=== PATIENT | male | born 1995 | race Two or more races ===

== ENCOUNTER 2024-05-07 21:42 | Emergency (ER) | payer MEDICAID, SELFPAY ==
[2024-05-07 21:43] VITALS: BMI 31.1
--- NOTE | 2024-05-07 22:28 | PC.NURSE ---
CALLED PT FOR VITALS AND NO ANSWER
== END 2024-05-07 23:23 | disposition left against medical advice (07) ==
LOC: SERX 23:41
PROVIDERS: Emergency Provider Emergency Medicine
DX: Z53.21 Procedure and treatment not carried out due to patient leaving prior to being seen by health care provider (principal)

== ENCOUNTER 2024-10-24 10:30 | Emergency (ER) | payer MEDICAID, SELFPAY ==
--- NOTE | 2024-10-24 10:55 | XR_ITS ---
Examination: Abdomen sonogram, Limited Date and time of exam: October 24, 2024 11:30 AM INDICATIONS: Right upper abdominal pain beginning 5 months ago Technique: Real-time mcdaniel scale transabdominal sonographic images of the upper abdomen obtained. Findings: Normal gallbladder. Normal common bile duct 0.3 cm Pancreatic head 3.0 cm Mild hepatomegaly 16.9 cm fatty infiltration Normal hepatopedal portal venous flow Patent IVC IMPRESSION: Fatty liver, mild hepatomegaly
[2024-10-24 11:02] VITALS: BP 132/78; PULSE 83; RESP 16; TEMP 37; O2SAT 98; BMI 33.7
--- NOTE | 2024-10-24 11:09 | EDNOTE_ITS ---
ED Abdominal Pain RME/HPI General Chief Complaint: Abdominal Pain Stated complaint: RUQ ABD PAIN Time seen by provider: 10/24/24 11:09 Arrival date/time: 10/24/24 10:30 29-year-old male with no known medical history presents to the emergency room with a chief complaint of right upper quadrant abdominal pain and tenderness x 2 days Source: patient Mode of arrival: ambulatory Limitations: no limitations Related Data Previous Rx's ?Medication ?Instructions ?Recorded albuterol sulfate 90 mcg/actuation 2 inh inhalation Q4 H PRN shortness 05/08/24 aerosol inhaler of breath or wheezing #8.5 g ronaldo famotidine 20 mg tablet 20 mg PO QDAY #30 tabs 05/12 polyethylene glycol 3350 17 17 g PO BID 3 weeks #119 g ronaldo 05/16/24 gram/dose oral powder (Miralax) Allergies Allergy/AdvReac Type Severity Reaction Status Date / Time loracarbef (From Lorabid) Allergy Severe Hives Verified 05/15/24 23:12 Review of Systems Review of Systems Systems Reviewed: All systems reviewed, normal except as documented Constitutional Constitutional: Reports system reviewed and no additional complaints, except as documented, Denies fatigue, Denies fever(s), Denies headache(s) and Denies weakness Eyes Eyes: Reports system reviewed and no additional complaints, except as documented, Denies blurry vision and Denies change in vision ENT Ears, Nose, Mouth, and Throat: Reports system reviewed and no additional complaints, except as documented, Denies otalgia, Denies headache(s), Denies nasal congestion, Denies throat swelling and Denies vertigo Cardiovascular Cardiovascular: Reports system reviewed and no additional complaints, except as documented, Denies chest pain, Denies dyspnea and Denies dyspnea on exertion Respiratory Respiratory: Reports system reviewed and no additional complaints, except as documented, Denies chest congestion, Denies cough, Denies dyspnea, Denies dyspnea on exertion and Denies wheezing Gastrointestinal Gastrointestinal: Reports system reviewed and no additional complaints, except as documented, Reports abdominal pain, Reports cramping, Reports dyspepsia, Reports nausea and Denies vomiting Genitourinary Genitourinary: Reports system reviewed and no additional complaints, except as documented, Denies dysuria and Denies hematuria Musculoskeletal Musculoskeletal: Reports system reviewed and no additional complaints, except as documented and Denies back pain Integumentary/Breasts Skin/Breast: Reports system reviewed and no additional complaints, except as documented and Denies wounds Neurologic Neurologic: Reports system reviewed and no additional complaints, except as documented, Denies confusion, Denies headache(s), Denies lack of coordination, Denies vertigo and Denies weakness Psychiatric Psychiatric: Reports system reviewed and no additional complaints, except as documented, Denies anxiety, Denies confusion, Denies depression, Denies paranoia, Denies suicidal ideation and Denies tactile hallucinations Endocrine Endocrine: Reports system reviewed and no additional complaints, except as documented and Denies fatigue Hematologic/Lymphatic Hematologic/Lymphatic: Reports system reviewed and no additional complaints, except as documented and Denies lymphadenopathy Allergic/Immunologic Allergic/Immunologic: Reports system reviewed and no additional complaints, except as documented, Denies throat swelling, Denies urticaria and Denies wheezing Past Medical History Past Medical History CARDIAC: Negative Cardiac Disorders or Congestive Heart Failure RESPIRATORY: Positive Asthma; Negative Chronic Obstructive Pulmonary Disease (COPD) GENITOURINARY: Negative Renal Disease ENDOCRINE: Negative Diabetes Mellitus Type 1 or Diabetes Mellitus Type 2 HEMATOLOGIC: Negative Sickle Cell Disease Social History SMOKING STATUS: Never smoker ED Exam General Limitations: Present no limitations General appearance: Present alert and in no apparent distress Head Head exam: Present atraumatic Eye Eye exam: Present normal appearance, PERRL and EOMI ENT ENT exam: Present normal exam, normal oropharynx and mucous membranes moist Neck Neck exam: Present normal inspection, full ROM and trachea midline Chest Chest inspection: Present normal inspection and symmetric chest wall rise Respiratory Respiratory exam: Present normal lung sounds bilaterally Cardiovascular Cardiovascular exam: Present regular rate, normal rhythm and normal heart sounds Abdominal Exam Abdominal exam: Present soft, tenderness and normal bowel sounds; Absent distention, guarding, rebound, rigidity, trauma, Sánchez's sign or tenderness at McBurney's Point Abdominal tenderness: Present RUQ and moderate Extremities Exam Extremities exam: Present normal inspection and full ROM Back Exam Back exam: Present normal inspection and full ROM Neurological Exam Neurological exam: Present alert, oriented X3 and CN II-XII intact Psychiatric Psychiatric exam: Present normal affect and normal mood Skin Skin exam: Present warm, dry, intact and normal color Course Quality Measures none Orders Category Date Time Status US gall bladder Stat Exams 10/24/24 10:55 Completed CBC Stat Lab 10/24/24 11:07 Completed CMP [Comprehensive Metabolic Panel] Stat Lab 10/24/24 11:07 Completed Lipase Stat Lab 10/24/24 11:07 Completed UA [Urinalysis] Stat Lab 10/24/24 12:05 Completed Urine Culture Stat Lab 10/24/24 12:05 Completed mg Hyd/Al Hyd/Jose Susp [Maalox Susp] Med 10/24/24 11:09 Discontinued 30 ml PO X1 ONE Vital Signs Vital signs: Vital Signs Temperature 98.6 F 10/24/24 11:02 Pulse Rate 83 10/24/24 11:02 Respiratory Rate 16 10/24/24 11:02 Blood Pressure 132/78 H 10/24/24 11:02 Pulse Oximetry (%) 98 10/24/24 11:02 Oxygen Delivery Method Room Air 10/24/24 11:02 O2 saturation 98% within normal limits Abdominal Pain MDM MDM Narrative MDM Narrative:: 29-year-old male with no known medical history presents to the emergency room with a chief complaint of right upper quadrant abdominal pain and tenderness x 2 days Patient is hemodynamically stable and in no apparent distress Physical examination shows 8 out of 10 right upper quadrant abdominal pain and tenderness as well as epigastric pain. Patient has active bowel sounds to all 4 quadrants. Patient denies any vomiting or diarrhea. Ultrasound of the gallbladder was completed and shows a fatty liver and mild hepatomegaly. There are no gallstones and there is a normal gallbladder. CBC CMP were negative for any leukocytosis urinalysis was negative. Patient was educated to follow-up with primary care provider and return to the emergency room for any evidence of worsening signs or symptoms Patient data External records reviewed:: [facility] previous records Clinical information provided by:: patient Social determinants that could affect healthcare access:: none Patient has the following chronic illnesses:: No chronic illness How is presenting disease/condition affected by chronic disease/condition?: no chronic disease Evaluation data The following diagnostics were reviewed and interpreted by me:: lab results and radiology exam(s) Lab and/or radiology exams considered but not ordered:: Labs and radiology exams considered and ordered Interpretation Summary: Gallbladder ultrasound-Findings: Normal gallbladder. Normal common bile duct 0.3 cm Pancreatic head 3.0 cm Mild hepatomegaly 16.9 cm fatty infiltration Normal hepatopedal portal venous flow Patent IVC IMPRESSION: Fatty liver, mild hepatomegaly Medications / Prescriptions Medications or Prescriptions considered but not ordered:: Medication given Medication administrations:: Medication Administration History Discontinued Medications Al Hydrox/Mg Hydrox/Simethicone (Mg Hyd/Al Hyd/Jose (Maalox Reg) Susp 30 Ml Udc) 30 ml PO X1 ONE Stop: 10/24/24 11:10 Last Admin: 10/24/24 11:16 Dose: 30 ml Documented By: ED Medication given Consultations Consultation(s) initiated? (list below): No Diagnosis Differential diagnosis abdominal pain: abdominal pain, acute appendicitis, constipation, gastroenteritis, pancreatitis and small bowel obstruction Most likely diagnosis given after review of the tests above:: Gastroenteritis Admission Indicated Admission indicated?: not indicated Admission Request Was there a request for admission?: No Disposition Plan Disposition Plan: Discharge Discharge Attestation Discharge Attestation: The patient and all family members were given an opportunity to ask questions and understood the discharge instructions. Discharge instructions specifically effects, indications for sooner follow up or return to the emergency department, and the expected course of current diagnosis. Patient condition: Stable Discharge Plan Plan Patient Disposition: HOME (Self Care) Disposition Comment: Stable Prescriptions/Referrals Prescriptions/Med Rec: No Action famotidine 20 mg tablet 20 mg PO QDAY Qty: 30 0RF albuterol sulfate 90 mcg/actuation HFA aerosol inhaler 2 inh inhalation Q4H PRN (Reason: shortness of breath or wheezing) Qty: 8.5 0RF polyethylene glycol 3350 [Miralax] 17 gram/dose powder 17 g PO BID 21 Days Qty: 119 2RF Rx Instructions: X 2 weeks and then once a day for 1 week Referrals: William Soliz MD [Primary Care Provider] - In 1 week Problem List Clinical Impression: Gastroenteritis Patient/Caregiver Discharge Instructions Education Materials: ED Gastroenteritis, Noninfectious Additional Instructions: Please follow-up with your primary care provider in the next 24 to 48 hours The ultrasound of your gallbladder was completed and was negative for any acute findings. There is no gallstones. For any evidence of worsening signs or symptoms please return to the emergency room immediately Please keep your appointment with your international nurse. Print Language: [place] Stand Alone Forms: Kortney Award Info., Patient Portal Info Letter PA/COATER HELPER Supervising Physician PA/COATER HELPER Supervising Physician: Dr. ROMO
[2024-10-24] MEDS: MG HYD/AL HYD/SIME (Maalox Reg) SUSP 30 ML UDC PO (11:16)
[2024-10-24 11:20] LABS: Basophils % (Auto) 1 % (0-2.5); Eosinophils # (Auto) 0.6 Thou/mm3 (0.0-0.5); Eosinophils % (Auto) 9 % (0-10); Hematocrit 43.3 % (41.0-53.0); Hemoglobin 15.3 g/dL (13.5-16.0); Immature Granulocytes % (Auto) 0 % (0-0); Immature Granulocytes Auto 0.02 Thou/mm3 (0.00-0.00); Lymphocytes # (Auto) 1.9 Thou/mm3 (1.0-4.8); Lymphocytes % (Auto) 28 % (10-50); Mean Corpuscular HGB Conc 35.3 g/dl (31.0-37.0); Mean Corpuscular Hemoglobin 29.8 pg (25.0-35.0); Mean Corpuscular Volume 84 fL (80-100); Monocytes # (Auto) 0.5 Thou/mm3 (0.0-0.8); Monocytes % (Auto) 8 % (0-12); Neutrophils # (Auto) 3.6 Thou/mm3 (1.8-7.7); Neutrophils % (Auto) 54 % (37-80); Nucleated Red Blood Cell % 0 /100 WBC (0); Platelet Count 215 Thou/mm3 (140-440); RDW Standard Deviation 36.7 fL (35.1-43.9); Red Blood Count 5.13 Miln/mm3 (4.50-5.90); White Blood Count 6.6 Thou/mm3 (3.8-10.6)
[2024-10-24 12:12] LABS: Alanine Aminotransferase 36 U/L (10-49); Albumin, Serum 4.8 gm/dL (3.5-5.0); Albumin/Globulin Ratio 1.8 (1.2-2.2); Alkaline Phosphatase 80 U/L (46-116); Anion Gap 9 (7-16); Aspartate Amino Transferase 18 U/L (0-34); BUN/Creatinine Ratio 15 Ratio (12-20); Bilirubin,Total 1.1 mg/dL (0.3-1.2); Blood Urea Nitrogen 20 mg/dL (9-23); Calcium 9.2 mg/dL (8.3-10.6); Calcium (Corrected) 9.2 mg/dL (8.5-10.1); Carbon Dioxide 25.9 mMol/L (20.0-31.0); Chloride 105 mMol/L (98-107); Creatinine (Component) 1.3 mg/dL (0.6-1.3); Estimated Creatinine Clearance 113.9 mL/min (>60); Globulin 2.7 gm/dL (2.3-3.5); Glucose 92 mg/dL (74-106); Lipase 38 U/L (12-53); Osmolality,Calculated 282 (275-295); Potassium 4.2 mMol/L (3.4-5.1); Sodium 140 mMol/L (136-145); Total Protein 7.5 gm/dL (5.7-8.2); eGFR > 60 See Note
[2024-10-24 12:15] LABS: Collection Type, Urine Clean Catch; Squamous Epithelial Cell,Urine 0 /hpf (0-5)
[2024-10-24 12:19] LABS: Bilirubin,Urine Negative (Negative); Blood,Urine Negative (Negative); Clarity,Urine Clear (Clear/Hazy); Color,Urine Lt-Yellow (Lt Yel-Yel); Glucose, Urine Negative (Negative); Ketones,Urine Negative (Negative); Leukocyte Esterase,Urine Negative (Negative); Nitrite,Urine Negative (Negative); Protein,Urine Negative (Neg - Trace); RBC,Urine 2 /hpf (0-3); Specific Gravity,Urine 1.028 (1.001-1.035); Urobilinogen,Urine Negative mg/dL (0.0-1.0); WBC,Urine < 1 /hpf (0-5)
== END 2024-10-24 13:26 | disposition home or self-care (01) ==
PROVIDERS: Nurse Practitioner Family; Emergency Provider Emergency Medicine; PCP Neurological Surgery
DX: K52.9 Noninfective gastroenteritis and colitis, unspecified (principal); K76.0 Fatty (change of) liver, not elsewhere classified
CPT/HCPCS: 36415; 76705; 80053; 81001; 83690; 85025; 87086; 99284; A9270

== ENCOUNTER 2025-07-19 11:37 | Emergency (ER) | payer MEDICAID, SELFPAY ==
[2025-07-19 11:38] VITALS: BMI 33.2
[2025-07-19 11:44] VITALS: BP 137/79; PULSE 60; RESP 18; TEMP 36.7; O2SAT 100
--- NOTE | 2025-07-19 12:34 | PD.EDRME ---
Rapid Medical Screening Exam RME Arrival date/time: 07/19/25 11:37 This is a 30 year old male with complaints of diarrhea for almost 2 weeks now. Pt c/o of right sided abdominal pain.Pt states he feels fatigue and weak. I have greeted and performed a focused initial assessment of this patient. Initial appropriate labs ordered at this time. A comprehensive ED assessment and evaluation of the patient and analysis of all test and completion of medical decision making process will be conducted by additional ED provider. Chief Complaint: Abdominal Pain Time Seen by Provider: 07/19/25 12:05 Vital signs: Vital Signs Temperature 98.1 F 07/19/25 11:44 Pulse Rate 60 07/19/25 11:44 Respiratory Rate 18 07/19/25 11:44 Blood Pressure 137/79 H 07/19/25 11:44 Pulse Oximetry (%) 100 07/19/25 11:44 Oxygen Delivery Method Room Air 07/19/25 11:44 Exam: Alert and oriented, breathing even unlabored. Right sided abdominal pain Clinical Impression: Abdominal pain
[2025-07-19 12:58] LABS: Basophils # (Auto) 0.0 Thou/mm3 (0.0-0.2); Basophils % (Auto) 0 % (0-2.5); Eosinophils # (Auto) 0.1 Thou/mm3 (0.0-0.5); Eosinophils % (Auto) 3 % (0-10); Hematocrit 41.7 % (41.0-53.0); Hemoglobin 14.3 g/dL (13.5-16.0); Immature Granulocytes Auto 0.00 Thou/mm3 (0.00-0.00); Lymphocytes # (Auto) 2.5 Thou/mm3 (1.0-4.8); Lymphocytes % (Auto) 50 % (10-50); Mean Corpuscular HGB Conc 34.3 g/dl (31.0-37.0); Mean Corpuscular Hemoglobin 29.7 pg (25.0-35.0); Mean Corpuscular Volume 87 fL (80-100); Monocytes # (Auto) 0.3 Thou/mm3 (0.0-0.8); Monocytes % (Auto) 7 % (0-12); Neutrophils # (Auto) 2.0 Thou/mm3 (1.8-7.7); Neutrophils % (Auto) 40 % (37-80); Nucleated Red Blood Cell # 0.00 Thou/mm3 (0.00-0.00); Nucleated Red Blood Cell % 0 /100 WBC (0); Platelet Count 167 Thou/mm3 (140-440); RDW Standard Deviation 42.7 fL (35.1-43.9); Red Blood Count 4.81 Miln/mm3 (4.50-5.90); White Blood Count 5.1 Thou/mm3 (3.8-10.6)
[2025-07-19 13:05] LABS: Collection Type, Urine Voided; Squamous Epithelial Cell,Urine 0 /hpf (0-5)
[2025-07-19 13:09] LABS: Bilirubin,Urine Negative (Negative); Blood,Urine Negative (Negative); Clarity,Urine Clear (Clear/Hazy); Color,Urine Lt-Yellow (Lt Yel-Yel); Culture Indicated,Urine Not Indicated; Glucose, Urine Negative (Negative); Ketones,Urine Negative (Negative); Leukocyte Esterase,Urine Negative (Negative); Nitrite,Urine Negative (Negative); PH,Urine 7.5 (5.0-7.0); Protein,Urine Negative (Neg - Trace); RBC,Urine 2 /hpf (0-3); Specific Gravity,Urine 1.024 (1.001-1.035); Urobilinogen,Urine Negative mg/dL (0.0-1.0); WBC,Urine < 1 /hpf (0-5)
[2025-07-19 13:18] LABS: Alanine Aminotransferase 45 U/L (10-49); Albumin, Serum 4.9 gm/dL (3.5-5.0); Albumin/Globulin Ratio 2.3 (1.2-2.2); Alkaline Phosphatase 74 U/L (46-116); Anion Gap 8 (7-16); Aspartate Amino Transferase 25 U/L (0-34); BUN/Creatinine Ratio 14 Ratio (12-20); Bilirubin,Total 1.6 mg/dL (0.3-1.2); Blood Urea Nitrogen 14 mg/dL (9-23); Calcium 9.5 mg/dL (8.3-10.6); Calcium (Corrected) 9.5 mg/dL (8.5-10.1); Carbon Dioxide 28.6 mMol/L (20.0-31.0); Chloride 107 mMol/L (98-107); Creatinine (Component) 1.0 mg/dL (0.6-1.3); Estimated Creatinine Clearance 141.6 mL/min (>60); Globulin 2.1 gm/dL (2.3-3.5); Glucose 101 mg/dL (74-106); Lipase 35 U/L (12-53); Osmolality,Calculated 287 (275-295); Potassium 4.3 mMol/L (3.4-5.1); Sodium 144 mMol/L (136-145); Total Protein 7.0 gm/dL (5.7-8.2); eGFR > 60 See Note
[2025-07-19 14:21] LABS: Amphetamine/Methamp Scrn,U Negative (Negative); Barbiturate Screen,Urine Negative (Negative); Benzodiazepines Screen,Urine Negative (Negative); Benzoylecgonine Screen, Ur Negative (Negative); Fentanyl Screen,Urine Negative (Negative); Opiate Screen,Urine Negative (Negative); THC Screen,Urine Negative (Negative)
[2025-07-19 15:13] VITALS: BP 134/80; PULSE 56; RESP 16; TEMP 36.9; O2SAT 100
--- NOTE | 2025-07-19 15:22 | EDNOTE_ITS ---
<Statement entered by Magali Schultz MD - 07/20/25 14:20> As co-signing physician, I was present and available for consult prn. I concur with the plan and care as documented by the midlevel provider. ED General RME/HPI General Chief complaint: Abdominal Pain Stated complaint: I FEEL LIKE MY BP IS LOW ; RUQ ABD PAINX2 WEEKS Time Seen by Provider: 07/19/25 12:05 Arrival date/time: 07/19/25 11:37 30-year-old male patient was brought in for evaluation regarding multiple complaints. Patient has been having generalized body weakness, worried that his blood pressure is low. Has been ongoing for the last few days. Also complaining of abdominal discomfort and bloatedness. Patient told me that this could be secondary to using CPAP machine during the night. Denies any vomiting fever chest pain or other complaints. RME / HPI RME / HPI narrative: 07/19/25 11:37 This is a 30 year old male with complaints of diarrhea for almost 2 weeks now. Pt c/o of right sided abdominal pain.Pt states he feels fatigue and weak. I have greeted and performed a focused initial assessment of this patient. Initial appropriate labs ordered at this time. A comprehensive ED assessment and evaluation of the patient and analysis of all test and completion of medical decision making process will be conducted by additional ED provider. Exam: Alert and oriented, breathing even unlabored. Right sided abdominal pain Impression: Abdominal pain Related Data Previous Rx's ?Medication ?Instructions ?Recorded albuterol sulfate 90 mcg/actuation 2 inh inhalation Q4 H PRN shortness 05/08/24 aerosol inhaler of breath or wheezing #8.5 g ronaldo famotidine 20 mg tablet 20 mg PO QDAY #30 tabs 05/12 polyethylene glycol 3350 17 17 g PO BID 3 weeks #119 g ronaldo 05/16/24 gram/dose oral powder (Miralax) Allergies Allergy/AdvReac Type Severity Reaction Status Date / Time loracarbef (From Lorabid) Allergy Severe Hives Verified 07/19/25 11:40 Review of Systems Review of Systems Narrative Review of Systems: Review of system reviewed and within normal limits except mentioned in HPI ED Exam Narrative Physical exam: VITAL SIGNS: Reviewed. GENERAL APPEARANCE: Alert and interactive, follows commands, no acute distress, HEAD AND FACE: Non-traumatic. ENT: PERRL, pink conjunctivitis, eyelid no trauma, Mucous membrane moist. NECK: Supple, nontender, no nuchal rigidity. CHEST: No tenderness, no crepitus, no paradoxical movement, no retractions. LUNGS: Clear, well ventilated, symmetric, no rales, no wheezing, no ronchi, no stridor, good breath sounds bilaterally. HEART: Regular rate, regular rhythm, no murmur, no gallops. ABDOMEN: Soft, positive bowel sounds, nondistended, no guarding, nontender, no rebound, no masses, RECTAL: Deferred. GENITAL: Deferred. NEUROLOGICAL: Gross motor function intact sensory function intact, Appropriate for age. MUSCULOSKELETAL: low back nontender, full range of motion. EXTREMITIES: Nontender, full range of motion. SKIN: Color pink, dry, no rash, no lacerations, no abrasions, no contusions. LYMPHATICS: Deferred. Course Quality Measures none Orders Category Date Time Status CBC Stat Lab 07/19/25 12:46 Completed Comprehensive Metabolic Panel Stat Lab 07/19/25 12:46 Completed Drug Screen,Urine Stat Lab 07/19/25 12:43 Completed Lipase Stat Lab 07/19/25 12:46 Completed Urinalysis, C/S if Indicated Stat Lab 07/19/25 12:43 Completed Vital Signs Vital signs: Vital Signs Temperature 98.1 F 07/19/25 11:44 Pulse Rate 60 07/19/25 11:44 Respiratory Rate 18 07/19/25 11:44 Blood Pressure 137/79 H 07/19/25 11:44 Pulse Oximetry (%) 100 07/19/25 11:44 Oxygen Delivery Method Room Air 07/19/25 11:44 Discharge Plan Plan Patient Disposition: HOME (Self Care) Discharge Disposition comment: Stable Prescriptions/Referrals Prescriptions/Med Rec: No Action famotidine 20 mg tablet 20 mg PO QDAY Qty: 30 0RF albuterol sulfate 90 mcg/actuation HFA aerosol inhaler 2 inh inhalation Q4H PRN (Reason: shortness of breath or wheezing) Qty: 8.5 0RF polyethylene glycol 3350 [Miralax] 17 gram/dose powder 17 g PO BID 21 Days Qty: 119 2RF Rx Instructions: X 2 weeks and then once a day for 1 week Referrals: Demetrius,William, CHECKER STOCKER [Primary Care Provider] - In 1 week Problem List Clinical Impression: Weakness generalized Patient/Caregiver Discharge Instructions Discharge Activity: activity as tolerated Education Materials: ED Weakness (Uncertain Cause) Additional Instructions: Thank you for the opportunity for serving you today. You are stable for discharged . You are advised to: Follow-up with your PCP in 1 to 2 days Return to ED for worsening of symptoms Increase oral fluids Print Language: Citizen Of [place] Stand Alone Forms: Kortney Award Info., Patient Portal Info Letter MCKINLEY/ILYA Supervising Physician MCIKNLEY/ILYA Supervising Physician: MD David MDM Narrative MDM hospital course (for use when minimal MDM required): 30-year-old male patient was brought in for evaluation regarding multiple complaints. Patient has been having generalized body weakness, worried that his blood pressure is low. Has been ongoing for the last few days. Also complaining of abdominal discomfort and bloatedness. Patient told me that this could be secondary to using CPAP machine during the night. Denies any vomiting fever chest pain or other complaints. Okay sounds good thanks patient's workup today all came back unremarkable. Patient's workup today all came back unremarkable. Patient's blood pressure was noted to be 134/80, there was no hypotension noted in the emergency room. Results discussed with the patient. Patient stable for discharge home.
== END 2025-07-19 15:24 | disposition home or self-care (01) ==
PROVIDERS: Nurse Practitioner Family; Emergency Provider Emergency Medicine
DX: R53.1 Weakness (principal)
CPT/HCPCS: 36415; 80053; 80307; 81001; 83690; 85025; 99282